=== PATIENT | female | born 1975 | race Caucasian/White ===

== ENCOUNTER 2021-01-25 11:33 | Emergency (ER) | payer MEDICAID ==
[~2021-01-25] VITALS: Ht 165 cm; Wt 84.0 kg
[~2021-01-25 11:33] MED LIST: ACHD5005 PO; ALB.5NB20 HHN; ALBU0.8322 NEB; ALBU2.5V4 IH; ALBU8.5H2 IH; AMOX500C2 PO; ASP81CT PO; ASPI-1238 PO; AZIT-21 PO; AZIT250T12 PO; BENZ100C18 PO; BENZ200C25 PO; BPR75T PO; BUDE10.22 IH; BUDE10.22 INH; BUSP15TA60 PO; CEFP500T4 PO; CELEXA; CETI10CA PO; CETI10TA17 PO; CITA20TA9 PO; CYCL10TA9 PO; DOXY100C2 PO; DOXY100C5 PO; DOXY150T9 PO; FLOVENT; FLT22013 INH; FLUT1DIS26 IH; GABA-488 PO; GUAI1CAP52 PO; HYDR-1231 PO; IBP800T PO; IBUP-1780 PO; IPRA3AMP19 IH; LEVA1.25 IH; LEVO500T69 PO; LEVO750T24 GT; LEVO750T24 PO; LEVO750T39 PO; LEVO750T6 PO; LYRICA; METH4TAB PO; NAPR-1071 PO; NAPR-243 PO; NCT14P TD; NCT21TD; NITR-65 PO; PHEN200T27 PO; PRCD5U GT; PRCD5U PO; PRD20T PO; PRD50T PO; PRD5T PO; PREDNISONE; PREG50CA2 PO; RT-ALBUINH IH; STEROID INHALER; SULF1TAB38 PO; TIOT18CA2 IH; TRAM-21 PO; TRAM50TA2 PO; TRM50T PO; VARE1TAB17 PO; [UNRECOGNIZED DRUG - OTHER]
--- NOTE | 2021-01-25 12:12 | ED Back Pain ---
General Chief Complaint: Back Problems Stated Complaint: RIGHT SIDE PAIN AND LOWER BACK PAIN Source of Information: Patient Exam Limitations: No Limitations History of Present Illness Date Seen by Provider: Jan 25, 2021 Time Seen by Provider: 11:58 Initial Comments Patient to the ER by private conveyance with chief complaint that she has been having a couple hours of writhing, intractable right back pain. No nausea or vomiting. No fevers dysuria or hematuria. She has a history of kidney stones and states this feels just like a kidney stone. She had a hysterectomy and 3 C- sections and no other abdominal surgeries. No diarrhea constipation vomiting fevers chills cough shortness of air. Patient took 2 tablets of ibuprofen or Tylenol 1 to 2 hours prior to arrival. Allergies and Home Medications Allergies Coded Allergies: No Known Drug Allergies (Verified , 07/22/07) Patient Home Medication List Home Medication List Reviewed: Yes Albuterol Sulfate (Proventil 2.5 Mg/3 Ml Ns) 2.5 Mg/3 Ml Solution, 2.5 MG NEB Q4H PRN for SHORTNESS OF BREATH, (Reported) Entered as Reported by: CHANDRAKANT URIARTE on 08/30/12 1337 Albuterol Sulfate (Proair Hfa) 8.5 Gm Hfa.aer.ad, 2 PUFF IH Q4H PRN for SHORTNESS OF BREATH, (Reported) Entered as Reported by: ROGELIO PELAEZ on 01/10/15 0920 Albuterol Sulfate (Albuterol Sulfate) 2.5 Mg/3 Ml Vial.neb, 2.5 MG IH Q4H PRN for SHORTNESS OF BREATH Prescribed by: HAYDEN PITTMAN on 11/30/15 1620 Aspirin (Aspirin EC) 81 Mg Tablet.dr, 81 MG PO DAILY, (Reported) Entered as Reported by: ROGELIO PELAEZ on 01/10/15 0920 Benzonatate (Tessalon Perles) 100 Mg Capsule, 1-2 CAP PO Q8H PRN for COUGH Prescribed by: HAYDEN PITTMAN on 11/30/15 1620 Budesonide/Formoterol Fumarate (Symbicort 80-4.5 Mcg Inhaler) 10.2 Gm Hfa.aer.ad, 2 PUFF INH BID, (Reported) Entered as Reported by: SACHA ROBIN on 04/13/15 0823 Buspirone HCl (Buspirone HCl) 15 Mg Tablet, 15 MG PO BID, (Reported) Entered as Reported by: ROGELIO PELAEZ on 01/10/15919 Cetirizine HCl (Cetirizine HCl) 10 Mg Tablet, 10 MG PO DAILY, (Reported) Entered as Reported by: ROGELIO PELAEZ on 01/10/15919 Doxycycline Hyclate (Doxycycline Hyclate) 100 Mg Capsule, 100 MG PO BID Prescribed by: HAYDEN PITTMAN on 11/30/15 1620 [Celexa] , (Reported) Entered as Reported by: ANA SANTIAGO on 11/30/15 143 [Lyrica] , (Reported) Entered as Reported by: ANA SANTIAGO on 11/30/151436 Review of Systems Constitutional: No chills, No diaphoresis EENTM: No ear pain, No eye pain Respiratory: No cough, No short of breath Cardiovascular: No chest pain, No edema Gastrointestinal: No abdominal pain, No nausea, No vomiting : No (Hysterectomy) Control/STD Prophylaxis: Other Musculoskeletal: back pain (Right costovertebral angle down to towards the right groin); No joint pain All Other Systems Reviewed Negative Unless Noted: Yes Past Zczxkbs-Mmijka-Rzecjs Hx Patient Social History Tobacco Use?: No Use of E-Cig and/or Vaping dev: No Substance use?: No Alcohol Use?: No Immunizations Up To Date Tetanus Booster (TDap): Unknown PED Vaccines UTD: Yes First/Initial COVID19 Vaccinat: NONE Second COVID19 Vaccination Robert: NONE COVID19 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 Seasonal Allergies Seasonal Allergies: Yes (ENVIRONMENTAL) Past Medical History Surgery/Hospitalization HX: PMH: ASTHMA, COPD, FIBROMYALGIA, ARTHRITIS SX: PARTIAL HYSTERECTOMY Cardiac, Section, Hysterectomy Asthma, COPD Currently Using CPAP: No Currently Using BIPAP: No 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 Sexually Transmitted Disease: No HIV/AIDS: No Arthritis, Fibromyalgia, Chronic Back Pain Cervical Depression Adverse Reaction/Blood Tranf: No Family Medical History Arthritis 19 MOTHER Cardiovascular disease 19 MOTHER Cataracts 19 MOTHER Diabetes mellitus 19 MOTHER Gastroenteritis 19 MOTHER Hypercholesterolemia 19 MOTHER Hypertension 19 MOTHER Myocardial infarction 19 FATHER 19 MOTHER Neoplasm (LUNG CANCER) 19 MOTHER Respiratory disorder 19 FATHER 19 MOTHER Thyroid disease G8 SISTER Visual disorder 19 MOTHER Cancer, CAD Under 55 Years Old Physical Exam Vital Signs Vital Signs - First Documented 01/25/21 11:50 Temp 36.5 Pulse 96 Resp 22 B/P (MAP) 140/82 (101) Pulse Ox 98 O2 Delivery Room Air Capillary Refill : Height, Weight, BMI Height: 5'5" Weight: 214lbs. 8.0oz. 97.865758rp; 38.93 BMI Method:Stated General Appearance: No Apparent Distress, WD/WN HEENT: PERRL/EOMI, Pharynx Normal, Moist Mucous Membranes Neck: Normal Inspection, Non Tender Cardiovascular: Regular Rate, Rhythm, No Edema Respiratory: Lungs Clear, Normal Breath Sounds, No Accessory Muscle Use, No Respiratory Distress Peripheral Pulses: 2+ Radial Pulses (R), 2+ Radial Pulses (L) Neurologic/Psychiatric: Alert, Oriented x3 Skin: Normal Color, Warm/Dry Progress/Results/Core Measures Results/Orders Lab Results Laboratory Tests Test 01/25/21 12:18 Range/Units Urine Color YELLOW Urine Clarity SL CLOUDY Urine pH 6.5 5-9 Urine Specific Reading 1.020 1.016-1.022 Urine Protein 1+ H NEGATIVE Urine Glucose (UA) NEGATIVE NEGATIVE Urine Ketones NEGATIVE NEGATIVE Urine Nitrite NEGATIVE NEGATIVE Urine Bilirubin NEGATIVE NEGATIVE Urine Urobilinogen 0.2 < = 1.0 MG/DL Urine Leukocyte Esterase 2+ H NEGATIVE Urine RBC (Auto) 3+ H NEGATIVE Urine RBC 25-50 H /HPF Urine WBC >100 H /HPF Urine Squamous Epithelial Cells 5-10 /HPF Urine Crystals NONE /LPF Urine Bacteria MODERATE H /HPF Urine Casts NONE /LPF Urine Mucus NEGATIVE /LPF Urine Culture Indicated YES My Orders Orders - GREG PANIAGUA Ua Culture If Indicated (01/25/21 11:43) Urine Bedside (01/25/21 11:43) Ketorolac Injection (Toradol Injection) (01/25/21 12:15) Ct Abd/Pelvis Wo(Kidney Stone) (01/25/21 12:08) Ketorolac Injection (Toradol Injection) (01/25/21 12:15) Urine Culture (01/25/21 12:18) Ceftriaxone (Rocephin) (01/25/21 13:00) Medications Given in ED Current Medications Medications Dose Ordered Sig/Felicia Route Start Time Stop Time Status Last Admin Dose Admin Ceftriaxone Sodium 1000 mg/ Sterile Water 10 ml @ 200 mls/hr ONCE ONCE IV 01/25/21 13:00 01/25/21 13:02 DC 01/25/21 13:17 200 MLS/HR Ketorolac Tromethamine 30 mg ONCE ONCE IVP 01/25/21 12:15 01/25/21 12:16 DC 01/25/21 12:15 30 MG Vital Signs/I&O 01/25/21 11:50 Temp 36.5 Pulse 96 Resp 22 B/P (MAP) 140/82 (101) Pulse Ox 98 O2 Delivery Room Air Progress Progress Note : Time: 12:14 Progress Note Presumed kidney stone. Plan to get some urine and a CT without IV contrast kidney stone study to confirm. 30 mg IV Toradol. Diagnostic Imaging Diagonstic Imaging: CT Plain Films/CT/US/NM/MRI: abdomen, pelvis Comments [facility] [place], [place] NAME: MONISHA ALMAZAN [facility] REC#: [id number] PT STATUS: REG ER : 1975 PHYSICIAN: GREG PANIAGUA MD ADMIT DATE: 01/25/21/ER Draft Date of Exam:01/25/21 CT ABD/PELVIS WO(KIDNEY STONE) PROCEDURE: CT urinary tract, rule out kidney stone. TECHNIQUE: Multiple contiguous axial images were obtained through the abdomen and pelvis without the use of intravenous contrast. Auto Exposure Controls were utilized during the CT exam to meet ALARA standards for radiation dose reduction. INDICATION: Flank pain Unenhanced images of liver and spleen are unremarkable. The gallbladder is distended without evidence of associated inflammation. There is no evidence of pancreatic or adrenal gland lesion. Minimal punctate calcification seen in the upper pole of the left kidney which is otherwise unremarkable. Right kidney contains an approximately 0.7 cm calculus in the lower pole of the right kidney with adjacent cystic region which could represent dilated calyx. In addition, there is an approximately 1.2 x 0.6 cm calcification at the level of the left ureteropelvic junction without significant associated hydronephrosis. There is however edema and fluid in the right perinephric space possibly related to forniceal rupture. Otherwise no significant free fluid is seen in the abdomen or pelvis. The appendix has a normal appearance. There is no evidence of bladder calculus. There has been apparent hysterectomy. IMPRESSION: Bilateral nephrolithiasis with an approximately 1.2 x 0.6 cm right ureteropelvic junction calculus. There is no significant hydronephrosis although it could be decompression via forniceal rupture and clinical correlation is recommended. Otherwise, no definite acute abnormality is identified. Dictated on workstation # [id number] Dict: 01/25/21 1256 Trans: 01/25/21 1304 CVB [id number] Interpreted by: STU DOMINIQUE MD Electronically signed by: Reviewed: Reviewed by Me Departure Impression Primary Impression: Ureteral calculus, right Disposition: 01 HOME, SELF-CARE Condition: Stable Departure-Patient Inst. Decision time for Depature: 13:45 Referrals: [facility] [place] (PCP/Family) Primary Care Physician GIO PARKS MD Patient Instructions: Kidney Stones (DC) Add. Discharge Instructions: You have a 6 x 12 mm stone just inside the ureter on the right side. This will likely not pass on its own and will need the help of a urologist. Call Dr. Parks Thursday to set up follow-up that week. If you have significant pain, vomiting or fever above 102.5 then you should return to the nearest ER for further evaluation. Ibuprofen 800 mg every 8 hours as necessary for pain. Drink lots of fluids. Keflex 1 capsule twice a day for the next week. Flomax 1 capsule daily until the kidney stone is out. Zofran 1 to 2 tablets under the tongue every 6 hours as necessary for nausea and/or vomiting. Hydrocodone 1 to 2 tablets every 4 hours as necessary for breakthrough pain control. All discharge instructions reviewed with patient and/or family. Voiced understanding. Scripts Hydrocodone/Acetaminophen (Hydrocodone-Acetamin 5-325 mg) 1 Each Tablet 1-2 TAB PO Q4H PRN for PAIN-MODERATE (5-7) for 3 Days, #30 TAB 0 Refills Prov: GREG PANIAGUA 01/25/21 Cephalexin (Cephalexin) 500 Mg Tablet 500 MG PO BID for 7 Days, #14 TAB 0 Refills Prov: GREG PANIAGUA 01/25/21 Tamsulosin HCl (Flomax) 0.4 Mg Cap 0.4 MG PO DAILY, #14 CAP 0 Refills Prov: GREG PANIAGUA 01/25/21 Ondansetron (Ondansetron Odt) 4 Mg Tab.rapdis 4-8 MG PO Q6H PRN for NAUSEA/VOMITING, #15 TAB 0 Refills Prov: GREG PANIAGUA 01/25/21 Work/School Note: Work Release Form Date Seen in the Emergency Department: Jan 25, 2021 Return to Work: Jan 31, 2021 Restrictions: No Restrictions Copy Copies To 1: GIO PARKS MD, TITUS J Jan 25, 2021 12:12
[2021-01-25] MEDS ORDERED: KETOROLAC 60 MG/2 ML VIAL IM ONE (12:15)
[2021-01-25] MEDS ORDERED: KETOROLAC 30 MG/ML VIAL IVP ONE (12:15)
[2021-01-25 12:39] LABS: CLARITY,URINE SL CLOUDY; COLOR,URINE YELLOW; PH,URINE 6.5 (5-9)
[2021-01-25 12:40] LABS: BILIRUBIN,URINE NEGATIVE (NEGATIVE); GLUCOSE, URINE (UA) NEGATIVE (NEGATIVE); KETONES,URINE NEGATIVE (NEGATIVE); LEUKOCYTE ESTERASE ,URINE 2+ (NEGATIVE); NITRITE,URINE NEGATIVE (NEGATIVE); PROTEIN,URINE 1+ (NEGATIVE)
[2021-01-25 12:41] LABS: BACTERIA,URINE MODERATE /HPF; RBC,URINE 25-50 /HPF; WBC,URINE >100 /HPF
[2021-01-25] MEDS ORDERED: cefTRIAXone 1,000 MG in WATER (STERILE) FOR INJECTION 10 ML IV ONE (13:00)
--- NOTE | 2021-01-25 13:04 | Diagnostic Imaging Report ---
PROCEDURE: CT urinary tract, rule out kidney stone. TECHNIQUE: Multiple contiguous axial images were obtained through the abdomen and pelvis without the use of intravenous contrast. Auto Exposure Controls were utilized during the CT exam to meet ALARA standards for radiation dose reduction. INDICATION: Flank pain Unenhanced images of liver and spleen are unremarkable. The gallbladder is distended without evidence of associated inflammation. There is no evidence of pancreatic or adrenal gland lesion. Minimal punctate calcification seen in the upper pole of the left kidney which is otherwise unremarkable. Right kidney contains an approximately 0.7 cm calculus in the lower pole of the right kidney with adjacent cystic region which could represent dilated calyx. In addition, there is an approximately 1.2 x 0.6 cm calcification at the level of the left ureteropelvic junction without significant associated hydronephrosis. There is however edema and fluid in the right perinephric space possibly related to forniceal rupture. Otherwise no significant free fluid is seen in the abdomen or pelvis. The appendix has a normal appearance. There is no evidence of bladder calculus. There has been apparent hysterectomy. IMPRESSION: Bilateral nephrolithiasis with an approximately 1.2 x 0.6 cm right ureteropelvic junction calculus. There is no significant hydronephrosis although it could be decompression via forniceal rupture and clinical correlation is recommended. Otherwise, no definite acute abnormality is identified. Dictated by: Dictated on workstation # [id number]
[2021-01-25] MEDS ORDERED: ACHD5005 PO (13:57)
[2021-01-25] MEDS ORDERED: TMSL.4C PO (13:57)
[2021-01-25] MEDS ORDERED: CEPH500T PO (13:57)
[2021-01-25] MEDS ORDERED: ONDA4TAB11 PO (13:57)
[2021-01-25 14:06] VITALS: BP 107/68
== END 2021-01-25 14:06 | disposition home or self-care (01) ==
LOC: EDUNIT# 11:33 → ER 11:37
DX: N20.1 Calculus of ureter (principal); J44.9 Chronic obstructive pulmonary disease, unspecified; Z79.82 Long term (current) use of aspirin
CPT/HCPCS: 74176; 81000; 87077; 87088; 87186

== ENCOUNTER → 2021-01-29 | Outpatient (CLI) | payer MEDICAID ==
[~2021-01-29] MED LIST changes: +BUDE10.2 IH; +BUSP30TA2 PO; +CEFD300C3 PO; +CEPH500T PO; +CETI10TA49 PO; +DULO60CA7 PO; +ONDA4TAB11 PO; +PREG150C46 PO; +PREG300C PO; +TMSL.4C PO
--- NOTE | 2021-01-29 17:25 | Diagnostic Imaging Report ---
EXAMINATION: Supine KUB at 3:31 p.m. INDICATION: Right nephrolithiasis. FINDINGS: The CT abdomen/pelvis exam performed on 01/25/2021 noted bilateral nephrolithiasis. There also appear to be a 1.2 x 0.6 cm calcification within the ureteropelvic junction on the right. On this exam, the calcification in the ureteropelvic junction on the right seen previously is again evident and does not appear to have changed significantly in size or position. The nonobstructive calculi involving the kidney seen previously are difficult to appreciate. There are no pathological calcifications along the expected paths of the ureters. The bowel gas pattern is nonspecific. There is less distention of the colon by gas than noted on the prior exam. There is a moderate amount of fecal material throughout the colon as well. There is no mass, organomegaly, or pathological calcification evident. Surgical clips are again seen overlying the right lower quadrant. IMPRESSION: 1. The calculus within the ureteropelvic junction on the right seen previously is again evident and does not appear to have changed significantly in size or position. 2. No new abnormality has developed otherwise. Dictated by: Dictated on workstation # [id number]
== END ==
LOC: RAD 15:03
PROVIDERS: ATTEND Urology
DX: N20.2 Calculus of kidney with calculus of ureter (principal)
CPT/HCPCS: 74018

== ENCOUNTER 2021-01-31 06:40 | Outpatient (CLI) | payer MEDICAID ==
[~2021-01-31] VITALS: Ht 165.1 cm; Wt 84.0 kg
[~2021-01-31 06:40] MED LIST changes: -BUDE10.2 IH; -BUSP30TA2 PO; -CEFD300C3 PO; -CETI10TA49 PO; -DULO60CA7 PO; -PREG150C46 PO; -PREG300C PO
[2021-01-31] MEDS ORDERED: CETI10TA49 PO (14:03)
[2021-01-31] MEDS ORDERED: RT-ALBUINH IH (14:17)
[2021-01-31] MEDS ORDERED: BUDE10.2 IH (14:17)
[2021-01-31] MEDS ORDERED: PREG300C PO (14:17)
[2021-01-31] MEDS ORDERED: BUSP30TA2 PO (14:17)
[2021-01-31] MEDS ORDERED: CEFD300C3 PO (14:17)
[2021-01-31] MEDS ORDERED: PREG150C46 PO (14:17)
[2021-01-31] MEDS ORDERED: TMSL.4C PO (14:17)
[2021-01-31] MEDS ORDERED: DULO60CA7 PO (14:17)
[2021-01-31] MEDS ORDERED: CYCL10TA9 PO (14:17)
== END 2021-01-31 14:18 | disposition home or self-care (01) ==
LOC: PREOP 06:40
PROVIDERS: ATTEND Urology
DX: Z01.818 Encounter for other preprocedural examination (principal)

== ENCOUNTER 2021-02-05 06:15 | Day surgery (SDC) | payer MEDICAID ==
[2021-02-05] VITALS (10 sets, daily range): BP systolic 99–122; BP diastolic 66–94
[~2021-02-05] VITALS: Ht 165.1 cm; Wt 84.0 kg
[~2021-02-05 06:15] MED LIST changes: +BUDE10.2 IH; +BUSP30TA2 PO; +CEFD300C3 PO; +CETI10TA49 PO; +DULO60CA7 PO; +PREG150C46 PO; +PREG300C PO
[2021-02-05] MEDS ORDERED: cefTRIAXone 1,000 MG VIAL IM ONE (06:45)
[2021-02-05] MEDS ORDERED: cefTRIAXone 1 GM IV (PRE-MIX) 50 ML IV ONE (06:45)
--- NOTE | 2021-02-05 06:59 | Progress Note-Pre Operative ---
Pre-Operative Progress Note H&P Reviewed The H&P was reviewed, patient examined and no changes noted. Date Seen by Provider: Feb 05, 2021 Time Seen by Provider: 06:59 Date H&P Reviewed: Feb 05, 2021 Time H&P Reviewed: 06:59 Pre-Operative Diagnosis: RT PROXIMAL URETERAL STONE GIO PARKS MD Feb 05, 2021 06:59
[2021-02-05] MEDS: LACTATED RINGERS 1,000 ML IV PRN ×2 (07:07→08:28)
--- NOTE | 2021-02-05 07:31 | Diagnostic Imaging Report ---
INDICATION: Lithotripsy. COMPARISON: 01/29/2021 TECHNIQUE: Single radiograph of abdomen dated 02/05/2021 FINDINGS: A 1 cm calcification is again identified overlying the medial aspect of the right renal shadow, similar to the prior examination. No suspicious calcifications overlying the left renal shadow. Surgical clips overlying the right pelvis are again seen. Nonobstructive bowel gas pattern. No free air. Mild osseous degenerative changes without acute osseous abnormality. IMPRESSION: 1 cm calcification overlying the right mid abdomen is again seen, felt to relate to a calculus within the right ureteropelvic junction as noted on prior imaging. Dictated by: Dictated on workstation # [id number]
[2021-02-05] MEDS ORDERED: fentaNYL INJ 100 MCG/2 ML AMP ONE (08:13)
[2021-02-05] MEDS ORDERED: SEVOFLURANE (ULTANE) 15 ML INHAL SOLN ONE (08:13)
[2021-02-05] MEDS ORDERED: ONDANSETRON 4 MG/2 ML (SDV) Z0FRAN ONE (08:13)
[2021-02-05] MEDS ORDERED: KETOROLAC 30 MG/ML VIAL ONE (08:13)
[2021-02-05] MEDS ORDERED: proPOfol 200 MG/20 ML (DIPRIVAN) VIAL IV ONE (08:13)
[2021-02-05] MEDS ORDERED: MIDAZOLAM 2 MG/2 ML (VERSED) VIAL ONE (08:13)
[2021-02-05] MEDS ORDERED: LIDOCAINE PF 2% 5 ML (XYLOCAINE) VIAL ONE (08:13)
[2021-02-05] MEDS ORDERED: FUROSEMIDE 40 MG/4 ML INJ (LASIX) ONE (08:13)
--- NOTE | 2021-02-05 08:35 | Progress Note-Post Operative ---
Post-Operative Progess Note Surgeon (s)/Rn Liaison (s) Surgeon GIO PARKS MD Rn Liaison: NONE Pre-Operative Diagnosis RT PROXIMAL URETERAL STONE Post-Operative Diagnosis SAME Procedure & Operative Findings Date of Procedure 02/05/21 Procedure Performed/Findings RT ESWL Anesthesia Type GENERAL Estimated Blood Loss Estimated blood loss (mL): NONE Specimens/Packing Specimens Removed NONE Packing: NONE GIO PARKS MD Feb 05, 2021 08:35
--- NOTE | 2021-02-05 08:37 | Discharge Inst-Urology ---
Discharge Inst-Urology Reconcile Patient Problems Problems Reviewed?: Yes Final Diagnosis RT PROXIMAL URETERAL STONE Patient Instructions/Follow Up Plan/Assessment/Instructions Please make appointment to been seen in office Sunday 02/18, KUB prior to it. KUB on way home Post ESWL instructions Increase oral fluids for 48 hours and then as needed. Diet and Activity as tolerated. If questions or concerns contact your physician Or seek help at emergency department. GIO PARKS MD Feb 05, 2021 08:37
--- NOTE | 2021-02-05 09:16 | Anesthesia-General Post-Op ---
General Patient Condition Mental Status/LOC: Same as Preop Cardiovascular: Satisfactory Nausea/Vomiting: Absent Respiratory: Satisfactory Pain: Controlled Complications: Absent Post Op Complications Complications None Follow Up Care/Instructions Patient Instructions None needed. Anesthesia/Patient Condition Patient Condition Patient is doing well, no complaints, stable vital signs, no apparent adverse anesthesia problems. No complications reported per nursing. LINETTE LASSITER CRNA Feb 05, 2021 09:16
[2021-02-05] MEDS ORDERED: morphine INJ 10 MG/ML 1ML (SYR OR VIAL) IVP ONE (09:30)
[2021-02-05] MEDS ORDERED: MEPERIDINE (DEMEROL) INJ 50 MG/ML IVP ONE (09:30)
[2021-02-05] MEDS ORDERED: fentaNYL INJ 100 MCG/2 ML AMP IVP ONE (09:30)
[2021-02-05] MEDS ORDERED: HYDROmorphone 2 MG/ML VIAL (DILAUDID) IV ONE (09:30)
[2021-02-05] MEDS ORDERED: ONDANSETRON 4 MG/2 ML (SDV) Z0FRAN IVP PRN (09:30)
--- NOTE | 2021-02-05 10:42 | Diagnostic Imaging Report ---
EXAMINATION: Abdomen 1 view HISTORY: POST ESWL COMPARISON: 02/05/2021 FINDINGS: There is a moderate amount of gas and stool throughout the colon. Nonobstructive bowel gas pattern. No radiopaque foreign body. Decreased size of the right renal calculus measuring 1.0 x 0.3 cm compared to 02/05/2021. The osseous structures are intact. IMPRESSION: Decreased size of a right renal calculus compared to prior radiograph. Dictated by: Dictated on workstation # [id number]
[2021-02-05] MEDS ORDERED: NITR-65 PO (10:53)
[2021-02-05] MEDS ORDERED: KETO10TA PO (10:53)
--- NOTE | 2021-02-05 14:10 | OPERATIVE REPORT ---
DATE OF SERVICE: 02/05/2021 PREOPERATIVE DIAGNOSIS: Right ureteropelvic junction stone. POSTOPERATIVE DIAGNOSIS: Right ureteropelvic junction stone. OPERATION PERFORMED: Right ESWL. SURGEON: Geovanny Parks MD ANESTHESIA: General. COMPLICATIONS: None. DESCRIPTION OF PROCEDURE: Under satisfactory general anesthesia, the patient in supine position on the ESWL table. The right UPJ stone was localized. Shocks were delivered at kV of 6. Total of 3000 shocks fragmented the stone nicely. The patient received 40 mg of Lasix and 30 mg of Toradol IV at the end of the procedure. She tolerated the procedure and anesthesia well, was sent to recovery room in stable condition. CC: [facility] -- requested, unable to deliver. Job ID: [id number] DocumentID: [id number] Dictated Date: 02/05/2021 08:55:43 [place] Date: 02/05/2021 14:09:52 Dictated By: GEOVANNY PARKS MD
== END 2021-02-05 11:10 | disposition home or self-care (01) ==
LOC: SDC 06:15
PROVIDERS: ATTEND Urology
DX: N20.1 Calculus of ureter (principal); J44.9 Chronic obstructive pulmonary disease, unspecified; M79.7 Fibromyalgia; F41.9 Anxiety disorder, unspecified; J30.2 Other seasonal allergic rhinitis; F32.A Depression, unspecified; E66.9 Obesity, unspecified; Z68.30 Body mass index [BMI] 30.0-30.9, adult; Z85.41 Personal history of malignant neoplasm of cervix uteri; F17.210 Nicotine dependence, cigarettes, uncomplicated; Z79.891 Long term (current) use of opiate analgesic; Z79.899 Other long term (current) drug therapy; Z11.2 Encounter for screening for other bacterial diseases
CPT/HCPCS: 74018; 87081

== ENCOUNTER 2021-07-18 10:44 | Emergency (ER) | payer MEDICAID ==
[~2021-07-18] VITALS: Ht 165 cm; Wt 100.0 kg
[~2021-07-18 10:44] MED LIST changes: +CYCL10TA25 PO; -CYCL10TA9 PO; +KETO10TA PO
--- NOTE | 2021-07-18 11:26 | ED Dyspnea ---
General Chief Complaint: Respiratory Problems Stated Complaint: SOB, LOW O2 Nursing Triage Note: pt states she went to her dr this morning and was sent here with sob, low O2 of 90%. last smoked on the way here. states this started last night. coughing. tested for covid at [facility] was negative. hx of copd and asthma. Source of Information: Patient Exam Limitations: No Limitations (DERIAN ROWLEY APRN) History of Present Illness Date Seen by Provider: Jul 18, 2021 Time Seen by Provider: 11:24 Initial Comments to ER by private vehicle from [facility] where she presented with shortness of breath and increased cough. They tested her for influenza and COVID and she was negative. She has COPD. She smokes 1/2 pack of cigarettes daily. She was found to have oxygen saturation of 90% was referred here to the emergency room. Symptoms began last night. Cough is productive. Timing/Duration: 1 Week Severity: Moderate Prior Episodes/Possible Cause: No Prior Episodes Associated Symptoms: Cough, Fever (DEIRAN ROWLEY APRN) Allergies and Home Medications Allergies Coded Allergies: No Known Drug Allergies (Verified , 07/22/07) Patient Home Medication List Home Medication List Reviewed: Yes (DERIAN ROWLEY APRN) Home Medication List Reviewed: Yes (TITI OROZCO MD) Albuterol Sulfate (Proair Hfa) 1 Puff Puff, 2 PUFF IH Q4H PRN for SHORTNESS OF BREATH, (Reported) Entered as Reported by: TYLER ALVARADO on 01/31/21 1417 Albuterol Sulfate (Albuterol Sulfate) 2.5 Mg/3 Ml (0.083 %) Vial.neb, 2.5 MG INH Q4H PRN for WHEEZING Prescribed by: DERIAN ROWLEY on 07/18/21 1257 Budesonide/Formoterol Fumarate (Symbicort 160-4.5 Mcg Inhaler) 10.2 Gm Hfa.aer.ad, 2 PUFF IH BID, (Reported) Entered as Reported by: TYLER ALVARADO on 01/31/21 141 Buspirone HCl (Buspirone HCl) Unknown Strength Tablet, Unknown Dose PO, (Reported) Entered as Reported by: TYLER ALVARADO on 01/31/21 1417 Cefdinir (Cefdinir) 300 Mg Capsule, 300 MG PO BID, (Reported) Entered as Reported by: TYLER ALVARADO on 01/31/21 141 Cefuroxime Axetil (Cefuroxime) 250 Mg Tablet, 250 MG PO BID Prescribed by: DERIAN ROWLEY on 07/18/21 1257 Cetirizine HCl (Zyrtec) 10 Mg Tablet, 10 MG PO DAILY, (Reported) Entered as Reported by: TYLER ALVARADO on 01/31/21 1403 Cyclobenzaprine HCl (Cyclobenzaprine HCl) 10 Mg Tablet, 10 MG PO TID PRN for MUSCLE CRAMPS, (Reported) Entered as Reported by: TYLER ALVARADO on 01/31/21 141 Duloxetine HCl (Cymbalta) 60 Mg Capsule.dr, 60 MG PO BID, (Reported) Entered as Reported by: TYLER ALVARADO on 01/31/211416 Ketorolac Tromethamine (Ketorolac Tromethamine) 10 Mg Tablet, 10 MG PO Q6H Prescribed by: MOLLY GAFFNEY on 02/05/21 1053 Nitrofurantoin Monohyd/M-Cryst (Macrobid 100 mg Capsule) 100 Mg Capsule, 1 TAB PO BID WITH MEALS Prescribed by: MOLLY GAFFNEY on 02/05/21 105 Prednisone (Prednisone) 20 Mg Tab, 40 MG PO DAILY Prescribed by: DERIAN ROWLEY on 07/18/21 1257 Pregabalin (Pregabalin) 150 Mg Capsule, 150 MG PO BID, (Reported) Entered as Reported by: TYLER ALVARADO on 01/31/21 141 Pregabalin (Lyrica) Unknown Strength Capsule, Unknown Dose PO, (Reported) Entered as Reported by: TYLER ALVARADO on 01/31/211416 Tamsulosin HCl (Flomax) 0.4 Mg Cap, 0.4 MG PO DAILY, (Reported) Entered as Reported by: TYLER ALVARADO on 01/31/211416 Review of Systems Review of Systems Constitutional: see HPI EENTM: see HPI Respiratory: no symptoms reported Cardiovascular: no symptoms reported (No) Genitourinary: no symptoms reported Musculoskeletal: no symptoms reported Skin: no symptoms reported Psychiatric/Neurological: No Symptoms Reported Endocrine: No Symptoms Reported Hematologic/Lymphatic: No Symptoms Reported (DERIAN ROWLEY APRN) Past Kdxnaor-Hwmkfm-Qwwqxv Hx Patient Social History Tobacco Use?: Yes Tobacco type used: Cigarettes Smoking Status: Current Everyday Smoker Substance use?: No Alcohol Use?: No (DERIAN ROWLEY APRN) Immunizations Up To Date Tetanus Booster (TDap): Unknown PED Vaccines UTD: Yes First/Initial COVID19 Vaccinat: NONE Second COVID19 Vaccination Robert: NONE Third COVID19 Vaccination Date: NONE (DERIAN ROWLEY APRN) Seasonal Allergies Seasonal Allergies: Yes (DERIAN ROWLEY APRN) Past Medical History Surgery/Hospitalization HX: PMH: ASTHMA, COPD, FIBROMYALGIA, ARTHRITIS SX: PARTIAL HYSTERECTOMY, 3 c sections Surgeries: Yes (HEART CATH, C SECTION X 3) Cardiac, Section, Hysterectomy Respiratory: Yes Asthma, COPD Currently Using CPAP: No Currently Using BIPAP: No Cardiac: No Neurological: No 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 Sexually Transmitted Disease: No HIV/AIDS: No Genitourinary: Yes Kidney Stones Gastrointestinal: No Musculoskeletal: Yes Arthritis, Fibromyalgia Endocrine: No HEENT: Yes (WEARS GLASSES) Hearing Impairment: Denies Cancer: No Cervical Psychosocial: Yes Depression Integumentary: No Blood Disorders: No Adverse Reaction/Blood Tranf: No (N/A) (DERIAN ROWLEY APRN) Family Medical History Arthritis 19 MOTHER Cardiovascular disease 19 MOTHER Cataracts 19 MOTHER Diabetes mellitus 19 MOTHER Gastroenteritis 19 MOTHER Hypercholesterolemia 19 MOTHER Hypertension 19 MOTHER Myocardial infarction 19 FATHER 19 MOTHER Neoplasm (LUNG CANCER) 19 MOTHER Respiratory disorder 19 FATHER 19 MOTHER Thyroid disease G8 SISTER Visual disorder 19 MOTHER Cancer, CAD Under 55 Years Old (DERIAN ROWLEY APRN) Physical Exam Vital Signs Vital Signs - First Documented 07/18/21 07/18/21 11:04 14:42 Temp 37.9 Pulse 124 Resp 22 B/P (MAP) 133/76 (95) Pulse Ox 95 O2 Delivery Room Air O2 Flow Rate 2.00 (TITI OROZCO MD) Vital Signs Capillary Refill : Less Than 3 Seconds (DERIAN ROWLEY APRN) Height, Weight, BMI Height: 5'5" Weight: 214lbs. 8.0oz. [id number]; 36.00 BMI Method:Stated General Appearance: No Apparent Distress, WD/WN HEENT: PERRL/EOMI, TMs Normal Neck: Full Range of Motion, Normal Inspection Respiratory: Lungs Clear, Normal Breath Sounds, Crackles (Bibasilar crackles left greater than right 95% room air) Cardiovascular: Normal Peripheral Pulses, Tachycardia (Rate of 125 sinus) Gastrointestinal: Non Tender, Soft Extremity: Normal Capillary Refill, Normal Inspection Neurologic/Psychiatric: Alert, Oriented x3 Skin: Normal Color, Warm/Dry (DERIAN ROWLEY APRN) Progress/Results/Core Measures Results/Orders Lab Results Laboratory Tests Test 07/18/21 11:16 07/18/21 11:21 07/18/21 11:35 Range/Units White Blood Count 11.4 H 4.3-11.0 10^3/uL Red Blood Count 4.26 3.80-5.11 10^6/uL Hemoglobin 13.7 11.5-16.0 g/dL Hematocrit 40 35-52 % Mean Corpuscular Volume 94 80-99 fL Mean Corpuscular Hemoglobin 32 25-34 pg Mean Corpuscular Hemoglobin Concent 34 32-36 g/dL Red Cell Distribution Width 12.5 10.0-14.5 % Platelet Count 166 130-400 10^3/uL Mean Platelet Volume 10.1 9.0-12.2 fL Immature Granulocyte % (Auto) 1 % Neutrophils (%) (Auto) 86 H 42-75 % Lymphocytes (%) (Auto) 6 L 12-44 % Monocytes (%) (Auto) 7 0-12 % Eosinophils (%) (Auto) 0 0-10 % Basophils (%) (Auto) 0 0-10 % Neutrophils # (Auto) 9.8 H 1.8-7.8 10^3/uL Lymphocytes # (Auto) 0.7 L 1.0-4.0 10^3/uL Monocytes # (Auto) 0.8 0.0-1.0 10^3/uL Eosinophils # (Auto) 0.0 0.0-0.3 10^3/uL Basophils # (Auto) 0.0 0.0-0.1 10^3/uL Immature Granulocyte # (Auto) 0.1 0.0-0.1 10^3/uL Neutrophils % (Manual) 73 % Lymphocytes % (Manual) 6 % Monocytes % (Manual) 6 % Band Neutrophils 15 % Blood Morphology Comment NORMAL D-Dimer 1.01 H 0.00-0.49 UG/ML Sodium Level 133 L 135-145 MMOL/L Potassium Level 3.7 3.6-5.0 MMOL/L Chloride Level 102 98-107 MMOL/L Carbon Dioxide Level 18 L 21-32 MMOL/L Anion Gap 13 5-14 MMOL/L Blood Urea Nitrogen 12 7-18 MG/DL Creatinine 1.22 0.60-1.30 MG/DL Estimat Glomerular Filtration Rate 56 BUN/Creatinine Ratio 10 Glucose Level 168 H 70-105 MG/DL Calcium Level 9.4 8.5-10.1 MG/DL Corrected Calcium 9.4 8.5-10.1 MG/DL Total Bilirubin 0.8 0.1-1.0 MG/DL Aspartate Amino Transf (AST/SGOT) 12 5-34 U/L Alanine Aminotransferase (ALT/SGPT) < 6 0-55 U/L Alkaline Phosphatase 70 40-136 U/L Troponin I < 0.028 <0.028 NG/ML B-Type Natriuretic Peptide 127.9 H <100.0 PG/ML Total Protein 7.0 6.4-8.2 GM/DL Albumin 4.0 3.2-4.5 GM/DL Procalcitonin 0.99 H <0.10 NG/ML Blood Gas Puncture Site LEFT RADIAL Blood Gas Patient Temperature 37 Arterial Blood pH 7.36 L 7.37-7.43 Arterial Blood Partial Pressure CO2 35 35-45 MMHG Arterial Blood Partial Pressure O2 44 L 79-93 MMHG Arterial Blood HCO3 20 L 23-27 MMOL/L Arterial Blood Total CO2 20.6 L 21.0-31.0 MMOL/L Arterial Blood Oxygen Saturation 81 L 94-100 % Arterial Blood Base Excess -4.9 L -2.5-2.5 MMOL/L Clement Test POSITIVE Blood Gas Ventilator Setting NO Blood Gas Inspired Oxygen N/A Influenza Type A (RT-PCR) Not Detected Not Detecte Influenza Type B (RT-PCR) Not Detected Not Detecte SARS-CoV-2 RNA (RT-PCR) Not Detected Not Detecte (TITI OROZCO MD) Vital Signs/I&O 07/18/21 07/18/21 07/18/21 07/18/21 11:04 11:22 12:25 13:05 Temp 37.9 37.9 Pulse 124 Resp 22 B/P (MAP) 133/76 (95) Pulse Ox 95 94 O2 Delivery Room Air Room Air Room Air 07/18/21 14:42 Temp 37.9 Pulse 127 Resp 20 B/P (MAP) 108/74 Pulse Ox 94 O2 Delivery Nasal Cannula O2 Flow Rate 2.00 (TITI OROZCO MD) Blood Pressure Mean: 95 Departure Communication (Admissions) 1352-oxygen saturation is fallen to 88 percent with good waveform at rest. Still think that she is okay to go home and she likely runs in the 90% range given her history of smoking and history of asthma/COPD. I will discharge her to home on some home oxygen as needed to keep saturation at or above 90%. She will return for any worsening. (DERIAN ROWLEY APRN) Impression Primary Impression: COPD with exacerbation Additional Impression: Hypoxia Disposition: 01 HOME, SELF-CARE Condition: Stable Departure-Patient Inst. Decision time for Depature: 12:55 (DERIAN ROWLEY APRN) Referrals: [facility] [place] (PCP/Family) Primary Care Physician Patient Instructions: Acute Bronchitis, Adult (DC) Add. Discharge Instructions: . Steroids and inhaler and antibiotics as directed. Return to ER for any concerns. Follow-up with your doctor next week. All discharge instructions reviewed with patient and/or family. Voiced understanding. Scripts Cefuroxime Axetil (Cefuroxime) 250 Mg Tablet 250 MG PO BID, #10 TAB Prov: DERIAN ROWLEY APRN 07/18/21 Albuterol Sulfate (Albuterol Sulfate) 2.5 Mg/3 Ml (0.083 %) Vial.neb 2.5 MG INH Q4H PRN for WHEEZING, #50 EA 1 Refill Prov: DERIAN ROWLEY APRN 07/18/21 Prednisone (Prednisone) 20 Mg Tab 40 MG PO DAILY, #8 TAB Prov: DERIAN ROWLEY APRN 07/18/21 DERIAN ROWLEY APRN Jul 18, 2021 11:26 TITI OROZCO MD Jul 19, 2021 06:20
[2021-07-18 11:27] LABS: ABG BASE EXCESS -4.9 MMOL/L (-2.5-2.5); ABG OXYGEN SATURATION 81 % (94-100); ABG PCO2 35 MMHG (35-45); ABG PH 7.36 (7.37-7.43); ABG PO2 44 MMHG (79-93); ABG TCO2 20.6 MMOL/L (21.0-31.0)
[2021-07-18 11:28] LABS: ALLENS TEST POSITIVE; PATIENT TEMP 37; VENTILATOR NO
[2021-07-18 11:29] LABS: BASOPHILS % (AUTO) 0 % (0-10); EOSINOPHILS % (AUTO) 0 % (0-10); HEMATOCRIT 40 % (35-52); HEMOGLOBIN 13.7 g/dL (11.5-16.0); LYMPHOCYTES # (AUTO) 0.7 10^3/uL (1.0-4.0); LYMPHOCYTES % (AUTO) 6 % (12-44); MEAN CORPUSCULAR HEMOGLOBIN 32 pg (25-34); MEAN CORPUSCULAR HGB CONC 34 g/dL (32-36); MEAN CORPUSCULAR VOLUME 94 fL (80-99); MEAN PLATELET VOLUME 10.1 fL (9.0-12.2); MONOCYTES # (AUTO) 0.8 10^3/uL (0.0-1.0); MONOCYTES % (AUTO) 7 % (0-12); NEUTROPHILS # (AUTO) 9.8 10^3/uL (1.8-7.8); NEUTROPHILS % (AUTO) 86 % (42-75); PLATELET COUNT 166 10^3/uL (130-400); WHITE BLOOD COUNT 11.4 10^3/uL (4.3-11.0)
[2021-07-18 11:38] LABS: CHLORIDE 102 MMOL/L (98-107); POTASSIUM 3.7 MMOL/L (3.6-5.0); SODIUM 133 MMOL/L (135-145)
[2021-07-18 11:39] LABS: CALCIUM 9.4 MG/DL (8.5-10.1)
[2021-07-18 11:40] LABS: GLUCOSE 168 MG/DL (70-105)
[2021-07-18 11:42] LABS: BILIRUBIN,TOTAL 0.8 MG/DL (0.1-1.0); CARBON DIOXIDE 18 MMOL/L (21-32)
[2021-07-18 11:44] LABS: ALKALINE PHOSPHATASE 70 U/L (40-136); CREATININE SERUM 1.22 MG/DL (0.60-1.30); GFR ESTIMATED 56
[2021-07-18 11:45] LABS: BUN/CREATININE RATIO 10
[2021-07-18 11:47] LABS: ALANINE AMINOTRANSFERASE < 6 U/L (0-55)
[2021-07-18] MEDS ORDERED: NS 100 ML (IVPB) BAG IV ONE (12:00)
[2021-07-18] MEDS ORDERED: IOHEXOL 350 MG/ML 100 ML (OMNIPAQUE 350) VIAL IV ONE (12:00)
[2021-07-18 12:17] LABS: BAND NEUTROPHILS 15 %; LYMPHOCYTES % (MANUAL) 6 %; MONOCYTES % (MANUAL) 6 %; NEUTROPHILS % (MANUAL) 73 %; RBC MORPH NORMAL
[2021-07-18] MEDS ORDERED: morphine INJ 10 MG/ML 1ML (SYR OR VIAL) IVP STA (12:22)
--- NOTE | 2021-07-18 12:46 | Diagnostic Imaging Report ---
INDICATION: Shortness of breath. TIME OF EXAM: 12:33 p.m. COMPARISON: Correlation is made with prior chest 04/12/2015. FINDINGS: The heart size is normal. The pulmonary vascularity is unremarkable. The lungs are clear. No infiltrate, effusion or pneumothorax is detected. IMPRESSION: No acute cardiopulmonary process is detected. Dictated by: Dictated on workstation # [id number]
[2021-07-18] MEDS ORDERED: PRD20T PO (12:57)
[2021-07-18] MEDS ORDERED: ALBU2.5V4 INH (12:57)
[2021-07-18] MEDS ORDERED: CEFU250T80 PO (12:57)
[2021-07-18] MEDS ORDERED: cefTRIAXone 1 GM PRE-MIX 50 ML IV ONE (13:00)
[2021-07-18] MEDS ORDERED: RT-ALBUTEROL/IPRATROPIUM 3 ML (DUONEB) VIAL INH ONE (13:00)
[2021-07-18] MEDS ORDERED: methylPREDNISolone 40 MG/ML (Solu-MEDROL) VIAL IV ONE (13:00)
--- NOTE | 2021-07-18 13:10 | Diagnostic Imaging Report ---
EXAMINATION: CT angiography of the chest. TECHNIQUE: Contrast enhanced thin section helical images were obtained through the chest with intravenous contrast timed for the optimal opacification of the arterial structures per CTA protocol. Post-processing, reconstructions and interpretation of angiographic images of the vessels was performed. 3D MIP reconstructions were performed and reviewed. All CT scans use one or more of the following dose optimizing techniques: Automated exposure control, MA and/or KvP adjustment based on a patient size and exam type, or iterative reconstruction. HISTORY: Cough and hypoxia. COMPARISON: 09/01/2012. FINDINGS: There is motion artifact obscuring the segmental vessels in the upper lobes. No pulmonary embolism is seen. There is no edema or pneumonia. No pleural effusion. No pneumothorax. No suspicious nodules. There is mild bronchial wall thickening. There is no axillary or supraclavicular lymphadenopathy. There is no mediastinal lymphadenopathy. Heart size is normal. There are no coronary artery calcifications. No pericardial effusion. Aorta is normal in caliber. Limited views of the upper abdomen are unremarkable. There are no suspicious osseous lesions. IMPRESSION: 1. No pulmonary embolism. 2. Mild bronchial wall thickening suggestive of bronchitis. Dictated by: Dictated on workstation # [id number]
[2021-07-18 14:42] VITALS: BP 108/74
== END 2021-07-18 14:42 | disposition home or self-care (01) ==
LOC: EDUNIT# 10:44 → ER 10:46
DX: J44.1 Chronic obstructive pulmonary disease with (acute) exacerbation (principal); F17.210 Nicotine dependence, cigarettes, uncomplicated; Z20.822 Contact with and (suspected) exposure to COVID-19
CPT/HCPCS: 36415; 71045; 71275; 80053; 82805; 83880; 84145; 84484; 85007; 85027; 85379; 87636; 93005; 94640

== ENCOUNTER 2022-05-16 13:55 | Emergency (ER) | payer MEDICAID ==
[~2022-05-16 13:55] MED LIST changes: +ALBU2.5V4 INH; +ALBU8.5H6 IH; +CEFU250T80 PO; +LEVO750T PO; -LEVO750T39 PO; -RT-ALBUINH IH
--- NOTE | 2022-05-16 14:10 | ED Cough/URI ---
General Chief Complaint: Respiratory Problems Stated Complaint: SOB | COUGH | History of Present Illness Date Seen by Provider: May 16, 2022 Time Seen by Provider: 14:10 Initial Comments 46-year-old female presents with cough and shortness of breath. She reports been gone for about a week. Patient went to urgent care, she was given a DuoNeb and prescribed antibiotics and steroids. Patient reports here because she states she was told by urgent care to come to the ER however calling urgent care they state that she given an option to come here or go home and at that time she did decide to go home and they prescribed her the antibiotics and steroids. Patient does not have any fever or chills. Patient does smoke and has a history of COPD Allergies and Home Medications Allergies Coded Allergies: No Known Drug Allergies (Verified , 07/22/07) Patient Home Medication List Home Medication List Reviewed: Yes Albuterol Sulfate (Ventolin Hfa) 1 Puff Puff, 2 PUFF IH Q4H PRN for SHORTNESS OF BREATH, (Reported) Entered as Reported by: TYLER ALVARADO on 01/31/211416 Albuterol Sulfate (Albuterol Sulfate) 2.5 Mg/3 Ml (0.083 %) Vial.neb, 2.5 MG INH Q4H PRN for WHEEZING Prescribed by: DERIAN ROWLEY on 07/18/21 1257 Budesonide/Formoterol Fumarate (Symbicort 160-4.5 Mcg Inhaler) 10.2 Gm Hfa.aer.ad, 2 PUFF IH BID, (Reported) Entered as Reported by: TYLER ALVARADO on 01/31/21 141 Buspirone HCl (Buspirone HCl) Unknown Strength Tablet, Unknown Dose PO, (Reported) Entered as Reported by: TYLER ALVARADO on 01/31/21 141 Cefdinir (Cefdinir) 300 Mg Capsule, 300 MG PO BID, (Reported) Entered as Reported by: TYLER ALVARADO on 01/31/21 141 Cefuroxime Axetil (Cefuroxime) 250 Mg Tablet, 250 MG PO BID Prescribed by: DERIAN ROWLEY on 07/18/21 1257 Cetirizine HCl (Zyrtec) 10 Mg Tablet, 10 MG PO DAILY, (Reported) Entered as Reported by: TYLER ALVARADO on 01/31/21 1403 Cyclobenzaprine HCl (Cyclobenzaprine HCl) 10 Mg Tablet, 10 MG PO TID PRN for MUSCLE CRAMPS, (Reported) Entered as Reported by: TYLER ALVARADO on 01/31/211416 Duloxetine HCl (Cymbalta) 60 Mg Capsule.dr, 60 MG PO BID, (Reported) Entered as Reported by: TYLER ALVARADO on 01/31/21 141 Ketorolac Tromethamine (Ketorolac Tromethamine) 10 Mg Tablet, 10 MG PO Q6H Prescribed by: MOLLY GAFFNEY on 02/05/21 105 Nitrofurantoin Monohyd/M-Cryst (Macrobid 100 mg Capsule) 100 Mg Capsule, 1 TAB PO BID WITH MEALS Prescribed by: MOLLY GAFFNEY on 02/05/21 105 Prednisone (Prednisone) 20 Mg Tab, 40 MG PO DAILY Prescribed by: DERIAN ROWLEY on 07/18/21 1257 Pregabalin (Pregabalin) 150 Mg Capsule, 150 MG PO BID, (Reported) Entered as Reported by: TYLER ALVARADO on 01/31/211416 Pregabalin (Lyrica) Unknown Strength Capsule, Unknown Dose PO, (Reported) Entered as Reported by: TYLER ALVARADO on 01/31/211416 Tamsulosin HCl (Flomax) 0.4 Mg Cap, 0.4 MG PO DAILY, (Reported) Entered as Reported by: TYLER ALVARADO on 01/31/211416 Review of Systems Review of Systems Constitutional: No chills, No fever EENTM: no symptoms reported Respiratory: cough, short of breath, wheezing Cardiovascular: no symptoms reported Gastrointestinal: no symptoms reported Musculoskeletal: no symptoms reported Skin: no symptoms reported Psychiatric/Neurological: No Symptoms Reported Past Qfhqrhz-Rqwisq-Zgkpyq Hx Immunizations Up To Date Tetanus Booster (TDap): Unknown PED Vaccines UTD: Yes First/Initial COVID19 Vaccinat: NONE Second COVID19 Vaccination Robert: NONE Third COVID19 Vaccination Date: NONE Seasonal Allergies Seasonal Allergies: Yes Past Medical History Surgery/Hospitalization HX: PMH: ASTHMA, COPD, FIBROMYALGIA, ARTHRITIS SX: PARTIAL HYSTERECTOMY, 3 c sections Surgeries: Yes (HEART CATH, C SECTION X 3) Cardiac, Section, Hysterectomy Respiratory: Yes Asthma, COPD Currently Using CPAP: No Currently Using BIPAP: No Cardiac: No Neurological: No 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 Sexually Transmitted Disease: No HIV/AIDS: No Genitourinary: Yes Kidney Stones Gastrointestinal: No Musculoskeletal: Yes Arthritis, Fibromyalgia Endocrine: No HEENT: Yes (WEARS GLASSES) Hearing Impairment: Denies Cancer: No Cervical Psychosocial: Yes Depression Integumentary: No Blood Disorders: No Adverse Reaction/Blood Tranf: No (N/A) Family Medical History Reviewed Nursing Family Hx Arthritis 19 MOTHER Cardiovascular disease 19 MOTHER Cataracts 19 MOTHER Diabetes mellitus 19 MOTHER Gastroenteritis 19 MOTHER Hypercholesterolemia 19 MOTHER Hypertension 19 MOTHER Myocardial infarction 19 FATHER 19 MOTHER Neoplasm (LUNG CANCER) 19 MOTHER Respiratory disorder 19 FATHER 19 MOTHER Thyroid disease G8 SISTER Visual disorder 19 MOTHER Cancer, CAD Under 55 Years Old Physical Exam Vital Signs - First Documented 05/16/22 14:36 Pulse Ox 94 O2 Delivery Room Air Capillary Refill : Height: 5'5" Weight: 214lbs. 8.0oz. 97.675564mw; 36.00 BMI Method:Stated General Appearance: WD/WN, no apparent distress, obese HEENT: TMs normal, pharynx normal Neck: full range of motion, supple Respiratory: no respiratory distress, no accessory muscle use, wheezing (Very mild) Cardiovascular: normal peripheral pulses, no edema Neurologic/Psychiatric: alert, normal mood/affect, oriented x 3 Skin: normal color, warm/dry Progress/Results/Core Measures Suspected Sepsis SIRS Temperature: Pulse: Respiratory Rate: Laboratory Tests 05/16/22 14:04: White Blood Count 5.6 Blood Pressure / Mean: Laboratory Tests 05/16/22 14:04: Platelet Count 204 05/16/22 14:29: Creatinine 0.82, Total Bilirubin 0.3 Results/Orders Lab Results Laboratory Tests Test 05/16/22 14:04 05/16/22 14:29 Range/Units White Blood Count 5.6 4.3-11.0 10^3/uL Red Blood Count 4.31 3.80-5.11 10^6/uL Hemoglobin 14.1 11.5-16.0 g/dL Hematocrit 41 35-52 % Mean Corpuscular Volume 95 80-99 fL Mean Corpuscular Hemoglobin 33 25-34 pg Mean Corpuscular Hemoglobin Concent 34 32-36 g/dL Red Cell Distribution Width 13.2 10.0-14.5 % Platelet Count 204 130-400 10^3/uL Mean Platelet Volume 10.2 9.0-12.2 fL Immature Granulocyte % (Auto) 0 % Neutrophils (%) (Auto) 52 42-75 % Lymphocytes (%) (Auto) 41 12-44 % Monocytes (%) (Auto) 6 0-12 % Eosinophils (%) (Auto) 1 0-10 % Basophils (%) (Auto) 1 0-10 % Neutrophils # (Auto) 2.9 1.8-7.8 10^3/uL Lymphocytes # (Auto) 2.3 1.0-4.0 10^3/uL Monocytes # (Auto) 0.3 0.0-1.0 10^3/uL Eosinophils # (Auto) 0.1 0.0-0.3 10^3/uL Basophils # (Auto) 0.0 0.0-0.1 10^3/uL Immature Granulocyte # (Auto) 0.0 0.0-0.1 10^3/uL Sodium Level 139 135-145 MMOL/L Potassium Level 3.6 3.6-5.0 MMOL/L Chloride Level 109 H 98-107 MMOL/L Carbon Dioxide Level 21 21-32 MMOL/L Anion Gap 9 5-14 MMOL/L Blood Urea Nitrogen 15 7-18 MG/DL Creatinine 0.82 0.60-1.30 MG/DL Estimat Glomerular Filtration Rate 90 BUN/Creatinine Ratio 18 Glucose Level 112 H 70-105 MG/DL Calcium Level 9.2 8.5-10.1 MG/DL Corrected Calcium 9.3 8.5-10.1 MG/DL Total Bilirubin 0.3 0.1-1.0 MG/DL Aspartate Amino Transf (AST/SGOT) 14 5-34 U/L Alanine Aminotransferase (ALT/SGPT) 16 0-55 U/L Alkaline Phosphatase 74 40-136 U/L C-Reactive Protein High Sensitivity 1.12 H 0.00-0.50 MG/DL Total Protein 6.8 6.4-8.2 GM/DL Albumin 3.9 3.2-4.5 GM/DL My Orders Orders - BENAVIDES,NICK L DO Chest Pa/Lat (2 View) (05/16/22 14:10) Cbc With Automated Diff (05/16/22 14:10) Comprehensive Metabolic Panel (05/16/22 14:10) Hs C Reactive Protein (05/16/22 14:10) Albuterol/Ipra Inhalation Soln (Duoneb I (05/16/22 14:15) Svn Small Volume Nebulizer (05/16/22 14:10) Medications Given in ED Current Medications Medications Dose Ordered Sig/Felicia Route Start Time Stop Time Status Last Admin Dose Admin Albuterol/ Ipratropium 3 ml ONCE ONCE INH 05/16/22 14:15 05/16/22 14:16 DC 05/16/22 14:35 3 ML Vital Signs/I&O 05/16/22 14:36 Pulse Ox 94 O2 Delivery Room Air Capillary Refill : Progress Note : Progress Note Patient's labs and x-rays were reviewed. Labs show mild elevation of CRP o therwise normal. Patient's x-ray was reviewed and is negative for any acute findings. Patient's symptoms are consistent with a COPD exacerbation. She is already on inhalers, she has been prescribed antibiotic and steroids from her previous urgent care visit today. I encouraged her to fill those prescriptions. She should use her inhaler every 4 hours while awake for 24 hours then as needed. Follow-up with her primary care provider in a couple days for recheck of symptoms. She was stable and discharged home Diagnostic Imaging Diagonstic Imaging: Xray Plain Films/CT/US/NM/MRI: chest Comments ate of Exam:05/16/22 CHEST PA/LAT (2 VIEW) INDICATION: Cough, shortness of breath, respiratory problems.. TECHNIQUE: Two view chest 2:28 PM CORRELATION STUDY: 07/10/2021 FINDINGS: The heart size, mediastinal configuration and pulmonary vasculature are within normal limits. The lungs are clear with no consolidating infiltrate. There is no significant pleural effusion or pneumothorax. Visualized osseous structures are unremarkable. IMPRESSION: 1. Negative for acute abnormality of the chest. Departure Impression Primary Impression: Bronchitis Disposition: 01 HOME, SELF-CARE Condition: Stable Departure-Patient Inst. Referrals: [facility] (PCP/Family) Primary Care Physician Patient Instructions: Acute Bronchitis, Adult (DC), Chronic Bronchitis (DC) Add. Discharge Instructions: Please use your inhaler every 4 hours while awake for the next 24 hours. Please fill the prescriptions given to you by urgent care. Follow-up with your primary care provider in 1 week or sooner if symptoms or not improving All discharge instructions reviewed with patient and/or family. Voiced understanding. NICK BENAVIDES DO May 16, 2022 14:10
[2022-05-16] MEDS ORDERED: RT-ALBUTEROL/IPRATROPIUM 3 ML (DUONEB) VIAL INH ONE (14:15)
[2022-05-16 14:17] LABS: BASOPHILS % (AUTO) 1 % (0-10); EOSINOPHILS # (AUTO) 0.1 10^3/uL (0.0-0.3); EOSINOPHILS % (AUTO) 1 % (0-10); HEMATOCRIT 41 % (35-52); HEMOGLOBIN 14.1 g/dL (11.5-16.0); LYMPHOCYTES # (AUTO) 2.3 10^3/uL (1.0-4.0); LYMPHOCYTES % (AUTO) 41 % (12-44); MEAN CORPUSCULAR HEMOGLOBIN 33 pg (25-34); MEAN CORPUSCULAR HGB CONC 34 g/dL (32-36); MEAN CORPUSCULAR VOLUME 95 fL (80-99); MEAN PLATELET VOLUME 10.2 fL (9.0-12.2); MONOCYTES # (AUTO) 0.3 10^3/uL (0.0-1.0); MONOCYTES % (AUTO) 6 % (0-12); NEUTROPHILS # (AUTO) 2.9 10^3/uL (1.8-7.8); NEUTROPHILS % (AUTO) 52 % (42-75); PLATELET COUNT 204 10^3/uL (130-400); WHITE BLOOD COUNT 5.6 10^3/uL (4.3-11.0)
--- NOTE | 2022-05-16 14:33 | Diagnostic Imaging Report ---
INDICATION: Cough, shortness of breath, respiratory problems.. TECHNIQUE: Two view chest 2:28 PM CORRELATION STUDY: 07/10/2021 FINDINGS: The heart size, mediastinal configuration and pulmonary vasculature are within normal limits. The lungs are clear with no consolidating infiltrate. There is no significant pleural effusion or pneumothorax. Visualized osseous structures are unremarkable. IMPRESSION: 1. Negative for acute abnormality of the chest. Dictated by: Dictated on workstation # [id number]
[2022-05-16 14:42] LABS: ALBUMIN 3.9 GM/DL (3.2-4.5); POTASSIUM 3.6 MMOL/L (3.6-5.0)
[2022-05-16 14:43] LABS: CALCIUM 9.2 MG/DL (8.5-10.1)
[2022-05-16 14:44] LABS: TOTAL PROTEIN 6.8 GM/DL (6.4-8.2)
[2022-05-16 14:46] LABS: BILIRUBIN,TOTAL 0.3 MG/DL (0.1-1.0)
[2022-05-16 14:48] LABS: CREATININE SERUM 0.82 MG/DL (0.60-1.30)
[2022-05-16 15:14] VITALS: BP 102/84
== END 2022-05-16 15:15 | disposition home or self-care (01) ==
LOC: EDUNIT# 13:55 → ER 13:57
DX: J44.1 Chronic obstructive pulmonary disease with (acute) exacerbation (principal); F17.200 Nicotine dependence, unspecified, uncomplicated; Z79.51 Long term (current) use of inhaled steroids
CPT/HCPCS: 36415; 71046; 80053; 85025; 86141; 94640

== ENCOUNTER 2022-06-07 17:00 | Emergency (ER) | payer MEDICAID ==
[~2022-06-07] VITALS: Ht 167 cm; Wt 108.0 kg
--- NOTE | 2022-06-07 17:28 | ED Cough/URI ---
General Chief Complaint: COVID19 Suspect/Confirmed Stated Complaint: SOA/CHEST PRESSURE/COUGH/FEVER Nursing Triage Note: PT STATES COUGH/FLU LIKE SS FOR ABOUT A MONTH, HAS BEEN HERE BEFORE FOR THE SAME, HX OF COPD Source: patient Exam Limitations: no limitations (ULI KENNEDY) History of Present Illness Date Seen by Provider: Jun 07, 2022 Time Seen by Provider: 17:25 Initial Comments Patient is a 46-year-old female who presents the ED for flulike symptoms. She reports symptoms over the past 2 weeks. Body aches, fatigue, sore throat, generalized weakness. She reports a wet productive cough with shortness of breath, chest pressure and throat pain. Chest pressure with a cough. The symptoms progressed to got worse over the past 2 weeks. She states she was on steroids and antibiotic last week without much improvement. History of smoking and COPD. She does have a nebulizer at home and breathing treatments without mu ch improvement. She states she feels feverish with chills. Denies any vomiting but reports secondary diarrhea. Denies headache, visual changes, ear pain, abdominal pain, vomiting, back pain when dysuria, hematuria. Denies of any recent travels or surgeries. Denies history of coronary artery disease, CHF. Denies of any leg swelling (ULI KENNEDY) Allergies and Home Medications Allergies Coded Allergies: No Known Drug Allergies (Verified , 07/22/07) Patient Home Medication List Home Medication List Reviewed: Yes (ULI KENNEDY) Albuterol Sulfate (Ventolin Hfa) 1 Puff Puff, 2 PUFF IH Q4H PRN for SHORTNESS OF BREATH, (Reported) Entered as Reported by: TYLER ALVARADO on 01/31/21 1417 Albuterol Sulfate (Albuterol Sulfate) 2.5 Mg/3 Ml (0.083 %) Vial.neb, 2.5 MG INH Q4H PRN for WHEEZING Prescribed by: DERIAN ROWLEY on 07/18/21 1257 Amoxicillin/Potassium Clav (Amox Tr-K Clv 875-125 mg Tab) 875 Mg-125 Mg Tablet, 1 EACH PO BID Prescribed by: SRINIVASAN MEADOWS on 06/07/22 1840 Budesonide/Formoterol Fumarate (Symbicort 160-4.5 Mcg Inhaler) 10.2 Gm Hfa.aer.ad, 2 PUFF IH BID, (Reported) Entered as Reported by: TYLER ALVARADO on 01/31/21 141 Buspirone HCl (Buspirone HCl) Unknown Strength Tablet, Unknown Dose PO, (Report ed) Entered as Reported by: TYLER ALVARADO on 01/31/21 141 Cefdinir (Cefdinir) 300 Mg Capsule, 300 MG PO BID, (Reported) Entered as Reported by: TYLER ALVARADO on 01/31/21 141 Cefuroxime Axetil (Cefuroxime) 250 Mg Tablet, 250 MG PO BID Prescribed by: DERIAN ROWLEY on 07/18/21 1257 Cetirizine HCl (Zyrtec) 10 Mg Tablet, 10 MG PO DAILY, (Reported) Entered as Reported by: TYLER ALVARADO on 01/31/21 140 Cyclobenzaprine HCl (Cyclobenzaprine HCl) 10 Mg Tablet, 10 MG PO TID PRN for MUSCLE CRAMPS, (Reported) Entered as Reported by: TYLER ALVARADO on 01/31/21 141 Duloxetine HCl (Cymbalta) 60 Mg Capsule.dr, 60 MG PO BID, (Reported) Entered as Reported by: TYLER ALVARADO on 01/31/211416 Ketorolac Tromethamine (Ketorolac Tromethamine) 10 Mg Tablet, 10 MG PO Q6H Prescribed by: MOLLY GAFFNEY on 02/05/21 1053 Nitrofurantoin Monohyd/M-Cryst (Macrobid 100 mg Capsule) 100 Mg Capsule, 1 TAB PO BID WITH MEALS Prescribed by: MOLLY GAFFNEY on 02/05/21 1053 Prednisone (Prednisone) 20 Mg Tab, 40 MG PO DAILY Prescribed by: DERIAN ROWLEY on 07/18/21 1257 Prednisone (Prednisone) 50 Mg Tab, 50 MG PO DAILY Prescribed by: SRINIVASAN MEADOWS on 06/07/22 1840 Pregabalin (Pregabalin) 150 Mg Capsule, 150 MG PO BID, (Reported) Entered as Reported by: TYLER ALVARADO on 01/31/21 141 Pregabalin (Lyrica) Unknown Strength Capsule, Unknown Dose PO, (Reported) Entered as Reported by: TYLRE ALVARADO on 01/31/21 1417 Tamsulosin HCl (Flomax) 0.4 Mg Cap, 0.4 MG PO DAILY, (Reported) Entered as Reported by: TYLER ALVARADO on 01/31/21 1417 Review of Systems Review of Systems Constitutional: No chills, No diaphoresis, No fever, No malaise, No weakness EENTM: No blurred vision, No double vision Respiratory: cough, short of breath Cardiovascular: chest pain Gastrointestinal: No abdominal pain; diarrhea; No nausea, No vomiting Genitourinary: No decreased output, No discharge Musculoskeletal: No back pain Skin: No change in color, No change in hair/nails (ULI KENNEDY) All Other Systems Reviewed Negative Unless Noted: Yes (ULI KENNEDY) Past Ldvpjbf-Qkgvrx-Ofbhlg Hx Immunizations Up To Date Tetanus Booster (TDap): Unknown PED Vaccines UTD: Yes First/Initial COVID19 Vaccinat: NONE Second COVID19 Vaccination Robert: NONE Third COVID19 Vaccination Date: NONE (ULI KENNEDY) Seasonal Allergies Seasonal Allergies: Yes (ULI KENNEDY) Past Medical History Surgery/Hospitalization HX: PMH: ASTHMA, COPD, FIBROMYALGIA, ARTHRITIS SX: PARTIAL HYSTERECTOMY, 3 c sections Surgeries: Yes (HEART CATH, C SECTION X 3) Cardiac, Section, Hysterectomy Respiratory: Yes Asthma, COPD Currently Using CPAP: No Currently Using BIPAP: No Cardiac: No Neurological: No 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 Sexually Transmitted Disease: No HIV/AIDS: No Genitourinary: Yes Kidney Stones Gastrointestinal: No Musculoskeletal: Yes Arthritis, Fibromyalgia Endocrine: No HEENT: Yes (WEARS GLASSES) Hearing Impairment: Denies Cancer: No Cervical Psychosocial: Yes Depression Integumentary: No Blood Disorders: No Adverse Reaction/Blood Tranf: No (N/A) (ULI KENNEDY) Family Medical History Arthritis 19 MOTHER Cardiovascular disease 19 MOTHER Cataracts 19 MOTHER Diabetes mellitus 19 MOTHER Gastroenteritis 19 MOTHER Hypercholesterolemia 19 MOTHER Hypertension 19 MOTHER Myocardial infarction 19 FATHER 19 MOTHER Neoplasm (LUNG CANCER) 19 MOTHER Respiratory disorder 19 FATHER 19 MOTHER Thyroid disease G8 SISTER Visual disorder 19 MOTHER Cancer, CAD Under 55 Years Old (ULI KENNEDY) Physical Exam Vital Signs - First Documented 06/07/22 17:10 Temp 36.9 Pulse 90 Resp 22 B/P (MAP) 133/86 (102) Pulse Ox 96 O2 Delivery Room Air (CAROLLUCHO Kimo DO) Capillary Refill : Less Than 3 Seconds (ULI KENNEDY) Height: 5'5" Weight: 214lbs. 8.0oz. 97.082915cr; 38.00 BMI Method:Stated General Appearance: WD/WN, no apparent distress Eyes: Bilateral Eye Normal Inspection, Bilateral Eye PERRL, Bilateral Eye Abnormal EOM HEENT: PERRL/EOMI, normal ENT inspection, TMs normal, pharynx normal Neck: non-tender, full range of motion, supple Respiratory: chest non-tender, no respiratory distress, no accessory muscle use, wheezing Cardiovascular: regular rate, rhythm, no edema, no gallop, no JVD Gastrointestinal: normal bowel sounds, non tender, soft, no organomegaly Extremities: normal range of motion, non-tender, normal inspection, no pedal edema 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, no motor/sensory deficits, alert, normal mood/affect, oriented x 3 Skin: normal color, warm/dry (ULI KENNEDY) Progress/Results/Core Measures Suspected Sepsis SIRS Temperature: Pulse: 90 Respiratory Rate: 22 Laboratory Tests 06/07/22 18:22: White Blood Count 5.5 Blood Pressure 133 /86 Mean: 102 Laboratory Tests 06/07/22 18:00: Creatinine 0.84, Total Bilirubin 0.6 06/07/22 18:22: Platelet Count 166 (ULI KENNEDY) Results/Orders Lab Results Laboratory Tests Test 06/07/22 17:23 06/07/22 18:00 06/07/22 18:22 Range/Units Influenza Type A (RT-PCR) Not Detected Not Detecte Influenza Type B (RT-PCR) Not Detected Not Detecte SARS-CoV-2 RNA (RT-PCR) Not Detected Not Detecte Sodium Level 141 135-145 MMOL/L Potassium Level 3.6 3.6-5.0 MMOL/L Chloride Level 110 H 98-107 MMOL/L Carbon Dioxide Level 19 L 21-32 MMOL/L Anion Gap 12 5-14 MMOL/L Blood Urea Nitrogen 9 7-18 MG/DL Creatinine 0.84 0.60-1.30 MG/DL Estimat Glomerular Filtration Rate 87 BUN/Creatinine Ratio 11 Glucose Level 126 H 70-105 MG/DL Calcium Level 9.2 8.5-10.1 MG/DL Corrected Calcium 9.1 8.5-10.1 MG/DL Total Bilirubin 0.6 0.1-1.0 MG/DL Aspartate Amino Transf (AST/SGOT) 13 5-34 U/L Alanine Aminotransferase (ALT/SGPT) 20 0-55 U/L Alkaline Phosphatase 77 40-136 U/L Troponin I < 0.028 <0.028 NG/ML Total Protein 6.9 6.4-8.2 GM/DL Albumin 4.1 3.2-4.5 GM/DL White Blood Count 5.5 4.3-11.0 10^3/uL Red Blood Count 4.33 3.80-5.11 10^6/uL Hemoglobin 13.8 11.5-16.0 g/dL Hematocrit 41 35-52 % Mean Corpuscular Volume 96 80-99 fL Mean Corpuscular Hemoglobin 32 25-34 pg Mean Corpuscular Hemoglobin Concent 33 32-36 g/dL Red Cell Distribution Width 12.9 10.0-14.5 % Platelet Count 166 130-400 10^3/uL Mean Platelet Volume 9.9 9.0-12.2 fL Immature Granulocyte % (Auto) 0 % Neutrophils (%) (Auto) 59 42-75 % Lymphocytes (%) (Auto) 33 12-44 % Monocytes (%) (Auto) 6 0-12 % Eosinophils (%) (Auto) 1 0-10 % Basophils (%) (Auto) 0 0-10 % Neutrophils # (Auto) 3.3 1.8-7.8 10^3/uL Lymphocytes # (Auto) 1.8 1.0-4.0 10^3/uL Monocytes # (Auto) 0.3 0.0-1.0 10^3/uL Eosinophils # (Auto) 0.1 0.0-0.3 10^3/uL Basophils # (Auto) 0.0 0.0-0.1 10^3/uL Immature Granulocyte # (Auto) 0.0 0.0-0.1 10^3/uL B-Type Natriuretic Peptide 54.4 <100.0 PG/ML (LUCHO MEDINA DO) Vital Signs/I&O 06/07/22 06/07/22 17:10 19:23 Temp 36.9 36.7 Pulse 90 80 Resp 22 16 B/P (MAP) 133/86 (102) 127/84 Pulse Ox 96 97 O2 Delivery Room Air Room Air (LUCHO MEDINA Kimo DO) Vital Signs/I&O Capillary Refill : Less Than 3 Seconds (ULI KENNEDY) Blood Pressure Mean: 102 Departure Communication (PCP) Patient with a extensive history of COPD and asthma. Patient is on Symbicort and albuterol. Reviewed previous ER visits, H&P's, testing. No known cardiac history. She reports today with worsening cough shortness of breath chest pressure flulike symptoms. Due to her current complaint CBC, CMP, troponin, BNP was ordered. Chest x-ray rule out pneumonia. COVID influenza rule out viral etiology. Patient initial vital signs stable. Oxygen 96% on room air. She does not require oxygen. CBC, CMP was otherwise unremarkable. She did have a blood sugar of 126 and bicarb 19 which is nonspecific. She does not appear toxic or septic. COVID influenza negative. Chest x-ray was negative for pneumonia. She had some subtle wheezing bilateral. No retractions or abdominal breathing. No pursed breathing. She Was given oral prednisone and DuoNeb breathing treatment with improvement of her wheezing and symptoms. Discussed concern for COPD exacerbation. Will discharge with a few day was worth of prednisone and Augmentin for her COPD exacerbation. Patient has been seen here in the past for COPD exacerbations. Similar type presentation. This does not appear to be cardiac in nature. Discussed smoking sensation. Follow-up your PCP in 2 to 3 days for reevaluation. Return precaution were discussed with patient (ULI KENNEDY) Impression Primary Impression: COPD with exacerbation Disposition: HOME, SELF-CARE Condition: Stable Departure-Patient Inst. Decision time for Depature: 18:38 (ULI KENNEDY) Referrals: [facility] (PCP/Family) Primary Care Physician Patient Instructions: Exacerbation of COPD Scripts Prednisone (Prednisone) 50 Mg Tab 50 MG PO DAILY for 5 Days, #5 TAB Prov: ULI KENNEDY 06/07/22 Amoxicillin/Potassium Clav (Amox Tr-K Clv 875-125 mg Tab) 875 Mg-125 Mg Tablet 1 EACH PO BID for 7 Days, #14 TAB Prov: ULI KENNEDY 06/07/22 Work/School Note: Work Release Form Date Seen in the Emergency Department: Jun 07, 2022 Return to Work: Jun 11, 2022 ATTENDING PHYSICIAN NOTE: I WAS PHYSICALLY PRESENT ER PHYSICIAN, BUT I WAS NOT INVOLVED IN ANY DECISION MAKING OR ANY CARE OF THIS PATIENT, AND I AM NOT COLLABORATING PHYSICIAN. (LUCHO MEDINA DO) ULI KENNEDY Jun 07, 2022 17:28 LUCHO MEDINA DO Jun 08, 2022 06:35
[2022-06-07] MEDS ORDERED: predniSONE 20 MG TAB PO ONE (17:30)
[2022-06-07] MEDS ORDERED: RT-ALBUTEROL/IPRATROPIUM 3 ML (DUONEB) VIAL INH ONE (17:30)
--- NOTE | 2022-06-07 18:09 | Diagnostic Imaging Report ---
INDICATION: 46-year-old female presents with cough and flulike symptoms for approximately a month. COMPARISONS: 05/16/2022. FINDINGS: Single view of the chest shows normal heart, pulmonary vasculature, pleura and diaphragms with no focal opacity. This film is slightly underpenetrated when compared to the prior study. No acute consolidation is seen. There is no effusion or pneumothorax. Soft tissues and bony thorax are unremarkable. IMPRESSION: No acute cardiopulmonary changes. Dictated by: Dictated on workstation # [id number]
[2022-06-07 18:21] LABS: ALBUMIN 4.1 GM/DL (3.2-4.5); CHLORIDE 110 MMOL/L (98-107); POTASSIUM 3.6 MMOL/L (3.6-5.0); SODIUM 141 MMOL/L (135-145)
[2022-06-07 18:22] LABS: CALCIUM 9.2 MG/DL (8.5-10.1)
[2022-06-07 18:23] LABS: GLUCOSE 126 MG/DL (70-105)
[2022-06-07 18:24] LABS: TOTAL PROTEIN 6.9 GM/DL (6.4-8.2)
[2022-06-07 18:25] LABS: BILIRUBIN,TOTAL 0.6 MG/DL (0.1-1.0); CARBON DIOXIDE 19 MMOL/L (21-32)
[2022-06-07 18:27] LABS: ALKALINE PHOSPHATASE 77 U/L (40-136); CREATININE SERUM 0.84 MG/DL (0.60-1.30); GFR ESTIMATED 87
[2022-06-07 18:28] LABS: BUN/CREATININE RATIO 11
[2022-06-07 18:28] LABS: BASOPHILS % (AUTO) 0 % (0-10); EOSINOPHILS # (AUTO) 0.1 10^3/uL (0.0-0.3); EOSINOPHILS % (AUTO) 1 % (0-10); HEMATOCRIT 41 % (35-52); HEMOGLOBIN 13.8 g/dL (11.5-16.0); LYMPHOCYTES # (AUTO) 1.8 10^3/uL (1.0-4.0); LYMPHOCYTES % (AUTO) 33 % (12-44); MEAN CORPUSCULAR HEMOGLOBIN 32 pg (25-34); MEAN CORPUSCULAR HGB CONC 33 g/dL (32-36); MEAN CORPUSCULAR VOLUME 96 fL (80-99); MEAN PLATELET VOLUME 9.9 fL (9.0-12.2); MONOCYTES # (AUTO) 0.3 10^3/uL (0.0-1.0); MONOCYTES % (AUTO) 6 % (0-12); NEUTROPHILS # (AUTO) 3.3 10^3/uL (1.8-7.8); NEUTROPHILS % (AUTO) 59 % (42-75); PLATELET COUNT 166 10^3/uL (130-400); WHITE BLOOD COUNT 5.5 10^3/uL (4.3-11.0)
[2022-06-07 18:30] LABS: ALANINE AMINOTRANSFERASE 20 U/L (0-55)
[2022-06-07] MEDS ORDERED: AMOX1TAB12 PO (18:40)
[2022-06-07] MEDS ORDERED: PRD50T PO (18:40)
[2022-06-07 19:23] VITALS: BP 127/84
== END 2022-06-07 19:25 | disposition home or self-care (01) ==
LOC: EDUNIT# 17:00 → ER 17:02
DX: J44.1 Chronic obstructive pulmonary disease with (acute) exacerbation (principal); Z87.891 Personal history of nicotine dependence; Z20.822 Contact with and (suspected) exposure to COVID-19
CPT/HCPCS: 36415; 71045; 80053; 83880; 84484; 85025; 87636; 93005